=== PATIENT | female | born 1975 ===

== ENCOUNTER → 2023-08-17 | Emergency (ER) | payer BC, SELFPAY ==
[~2023-08-17] MED LIST: DIAZEPAM 5 MG TABLET ONE; FAMOTIDINE 20 MG/2 ML VIAL IV ONE; HYDROMORPHONE HCL 1 MG/ML INJ ONE; KETOROLAC 30 MG/ML INJ ONE; Levofloxacin 750mg IV 750 MG/150 ML BAG IV ONE; NA CHLORIDE 0.9% 1,000 ML ONE; ONDANSETRON 4 MG/2 ML VIAL ONE; dexAMETHasone 10 MG/ML VIAL ONE
[2023-08-17 17:50] LABS: Absolute Lymphocytes (CBC) 1.5 K/uL (0.7-4.9); Hematocrit 31.2 % (36.0-45.0); Lymphocytes % 27.8 % (15.3-44.8); MCV 86.1 fL (80-100); Platelets 252 thou/uL (152-406); RBC Red Blood Cell Count 3.63 M/uL (3.86-4.86)
[2023-08-17 18:05] LABS: Protime INR 1.02
[2023-08-17 18:15] LABS: Albumin 3.1 g/dL (3.4-5.0); Bilirubin Direct 0.1 mg/dL (0-0.2); Bilirubin Indirect, Calculated 0.3 mg/dL (0.2-0.8); Bilirubin Total 0.4 mg/dL (0.2-1.0); Magnesium 2.2 mg/dL (1.6-2.4); Potassium 3.7 mEq/L (3.5-5.1); Protein, Total 7.2 g/dL (6.4-8.2); Troponin High Sensitivity 7.5 pg/mL (<58.9)
[2023-08-17 18:20] LABS: SARS-CoV-2 Antigen Rapid Res Negative (Negative)
[2023-08-17 19:08] LABS: Specific Gravity 1.028 (1.005-1.030); Urine Bacteria None Seen /HPF (<20); Urine Bilirubin NEGATIVE (Negative); Urine Blood Negative (Negative); Urine Clarity Turbid (Clear); Urine Color Light-Yellow (Yellow); Urine Glucose NEGATIVE (Negative); Urine Mucus 2+ /HPF (None Seen); Urine Protein TRACE (Negative); Urine RBC None Seen /HPF (None Seen); Urine Urobilinogen Normal (Normal); Urine pH 5.5 (5.0-7.0)
--- NOTE | 2023-08-17 19:28 | RAD REPORT ---
EXAM DESCRIPTION: CT - Chest For Pe Angio - 08/17/2023 7:03 pm CLINICAL HISTORY: Chest pain COMPARISON: None. TECHNIQUE: Dynamically enhanced axial 3 mm thick images of the chest were obtained during administra tion of 100 mL Isovue 370 IV contrast. Coronal and oblique reconstruction images were generated and r eviewed. Exam utilizes a protocol for optimal evaluation of pulmonary arterial tree. Maximum intensity projections 3D imaging was utilized All CT scans are performed using dose optimization technique as appropriate and may include automated exposure control or mA/KV adjustment according to patient size. FINDINGS: A mildly suboptimal opacification pulmonary arteries. No gross pulmonary embolus seen A thoracic aortic aneurysm is not noted. A small left pleural effusion. No pericardial effusion. Minimal left lower lobe atelectasis IMPRESSION: No gross pulmonary embolus seen
--- NOTE | 2023-08-17 19:28 | RAD REPORT ---
EXAM DESCRIPTION: CT - Abdomen Pelvis W Contrast - 08/17/2023 7:03 pm CLINICAL HISTORY: Abdominal pain COMPARISON: none. TECHNIQUE: Computed axial tomography of the abdomen pelvis was obtained. 100 cc Isovue-300 was admin istered intravenously. Oral contrast was not requested which limits evaluation of bowel and appendix All CT scans are performed using dose optimization technique as appropriate and may include automated exposure control or mA/KV adjustment according to patient size. FINDINGS: Prominence of the left and caudate lobes of the liver may indicate early chronic disease. The spleen measures 14 centimeters Pancreas, adrenals and kidneys are unremarkable Small to moderate umbilical hernia No adnexal mass. Normal appendix No evidence of diverticulitis IMPRESSION: Mild splenomegaly
--- NOTE | 2023-08-17 19:29 | RAD REPORT ---
EXAM DESCRIPTION: Ahsan Single View08/17/2023 6:13 pm CLINICAL HISTORY: cough COMPARISON: none FINDINGS: The lungs appear clear of acute infiltrate. The heart is mildly enlarged . Small left pleural effusion
--- NOTE | 2023-08-17 19:54 | ER ---
Nurse's Notes [facility] Name: Maria Teresa Arredondo Age: 48 yrs Sex: Female : 1975 Arrival Date: 08/17/2023 Time: 16:40 Bed 6 Private MD: Diagnosis: Strain of muscle and tendon of back wall of thorax;Strain of muscle and tendon of front wall of thorax;Cough;Fever, unspecified;Pneumonia due to other specified bacteria;Pleurisy;Pleural effusion, not elsewhere classified Presentation: 08/17 17:06 Chief complaint: Patient states: Pt states she has had a cold since 07/17/23. Pt c/o tl4 left side pain, "swollen all over", and "can't hardly breathe". Pt diagnosed with "a pulled muscle". Pt states pain is getting worse. Coronavirus screen: Vaccine status: Patient reports being unvaccinated. Ebola Screen: Patient negative for fever greater than or equal to 101.5 degrees Fahrenheit, and additional compatible Ebola Virus Disease symptoms Patient denies exposure to infectious person. Patient denies travel to an Ebola-affected area in the 21 days before illness onset. No symptoms or risks identified at this time. Initial Sepsis Screen: Does the patient meet any 2 criteria? No. Patient's initial sepsis screen is negative. Does the patient have a suspected source of infection? No. Patient's initial sepsis screen is negative. Risk Assessment: Do you want to hurt yourself or someone else? Patient reports no desire to harm self or others. Onset of symptoms was July 17, 2023. 17:06 Method Of Arrival: Ambulatory tl4 17:06 Acuity: YESSI 3 tl4 Triage Assessment: 17:11 General: Appears in no apparent distress. Behavior is calm, cooperative. Pain: tl4 Complains of pain in "everywhere". EENT: No deficits noted. No signs and/or symptoms were reported regarding the EENT system. Neuro: No deficits noted. Cardiovascular: No deficits noted. Denies chest pain, diaphoresis, lightheadedness, palpitations. Respiratory: Reports cough that is. GI: No deficits noted. No signs and/or symptoms were reported involving the gastrointestinal system. : No deficits noted. No signs and/or symptoms were reported regarding the genitourinary system. Derm: No deficits noted. No signs and/or symptoms reported regarding the dermatologic system. [employer]IDE [employer]OWER: 18:52 unknown tl4 Historical: - Allergies: 17:10 No Known Allergies; tl4 - Home Meds: 17:10 None [Active]; tl4 - PMHx: 17:10 None; tl4 - PSHx: 17:10 None; tl4 - Immunization history:: Adult Immunizations unknown. - Social history:: Smoking status: Patient/guardian denies using tobacco, the patient reports quitting approximately 5 years ago. - Family history:: not pertinent. Screenin:[facility] ED Fall Risk Assessment (Adult) History of falling in the last 3 months, tl4 including since admission No falls in past 3 months (0 pts) Confusion or Disorientation No (0 pts) Intoxicated or Sedated No (0 pts) Impaired Gait No (0 pts) Mobility Assist Device Used No (0 pt) Altered Elimination No (0 pt) Score/Fall Risk Level 0 - 2 = Low Risk Oriented to surroundings, Maintained a safe environment, Educated pt \\T\\ family on fall prevention, incl call for assistance when getting out of bed, Assessed \\T\\ reinforced patient's understanding of fall precautions, Provided non-skid footwear, Hourly rounding (assess needs \\T\\ fall precautionary measures) done, Used ambulatory aids as needed (educated on \\T\\ assisted with), Used gait belt as appropriate. Abuse screen: Denies threats or abuse. Denies injuries from another. Nutritional screening: No deficits noted. Tuberculosis screening: No symptoms or risk factors identified. Assessment: 18:47 Reassessment: Patient and/or family updated on plan of care and expected duration. Pain tl4 level reassessed. Patient is alert, oriented x 3, equal unlabored respirations, skin warm/dry/pink. Patient states feeling better. 19:46 Reassessment: Patient appears in no apparent distress at this time. No changes from jw7 previously documented assessment. Patient and/or family updated on plan of care and expected duration. Pain level reassessed. Patient is alert, oriented x 3, equal unlabored respirations, skin warm/dry/pink. 20:26 Reassessment: Patient appears in no apparent distress at this time. Patient and/or jw7 family updated on plan of care and expected duration. Pain level reassessed. Patient is alert, oriented x 3, equal unlabored respirations, skin warm/dry/pink. Patient states feeling better. Patient states symptoms have improved. Vital Signs: 17:06 BP 157 / 108; Pulse 78; Resp 16; Temp 98.3; Pulse Ox 100% on R/A; Pain 10/10; tl4 17:46 BP 126 / 71; Pulse 64; Resp 17; Pulse Ox 98% on R/A; tl4 18:48 BP 136 / 92; Pulse 62; Resp 18; Pulse Ox 98% on R/A; Pain 5/10; tl4 19:30 BP 113 / 55; Pulse 59; Resp 19 S; Pulse Ox 97% on R/A; jw7 20:25 BP 119 / 66; Pulse 59; Resp 15 S; Pulse Ox 95% on R/A; jw7 17:06 Pain Scale: Adult tl4 18:48 Pain Scale: Adult tl4 ED Course: 16:55 Patient arrived in ED. cm10 16:56 Phoenix Do MD is Attending Physician. tiny 16:56 Crys Aleman, RN is Primary Nurse. ko1 17:10 Triage completed. tl4 17:12 Arm band placed on Patient placed in an exam room, on a stretcher. tl4 17:57 Basic Metabolic Panel Sent. tl4 17:57 CBC with Diff Sent. tl4 17:57 LFT's Sent. tl4 17:57 Magnesium Sent. tl4 17:57 NT PRO-BNP Sent. tl4 17:57 PT-INR Sent. tl4 17:57 Troponin HS Sent. tl4 17:57 Flu Sent. tl4 17:57 SARS RAPID Sent. tl4 17:58 Blood Culture Adult (2) Sent. tl4 18:15 XRAY Chest (1 view) In Process Unspecified. EDMS 18:22 INCENTIVE SPIROMETRY Sent. tl4 18:32 Phoenix Broussard PA is PHCP. cp 18:52 Patient has correct armband on for positive identification. Placed in gown. Bed in low tl4 position. Call light in reach. Side rails up X2. Adult w/ patient. Provided Education on: ed process. 18:52 No provider procedures requiring assistance completed. Inserted saline lock: 20 gauge tl4 in right forearm, using aseptic technique. Blood collected. 19:05 CT Chest For PE Angio In Process Unspecified. EDMS 19:05 CT Abd/Pelvis - IV Contrast Only In Process Unspecified. EDMS 20:27 IV discontinued, intact, bleeding controlled, No redness/swelling at site. Pressure jw7 dressing applied. Administered Medications: 17:55 Drug: Famotidine IVP 20 mg IVP once; dilute with 10 mL 0.9% NaCl; give over 2 minutes tl4 Route: IVP; Site: right antecubital; 18:22 Follow up: Response: No adverse reaction tl4 17:56 Drug: HYDROmorphone IVP 1 mg IVP once Route: IVP; Infused Over: 2 mins; Site: right tl4 antecubital; 18:23 Follow up: Response: Pain is decreased tl4 17:56 Drug: Ondansetron IVP 8 mg IVP once; over 2 minutes Route: IVP; Infused Over: 4 mins; tl4 Site: right antecubital; 18:22 Follow up: Response: No adverse reaction tl4 17:56 Drug: levofloxacin IVPB 750 mg 150 ml IVPB once over 90 mins Volume: 150 ml; Route: tl4 IVPB; Infused Over: 90 mins; Site: right antecubital; Delivery: Primary tubing; 20:28 Follow up: Response: No adverse reaction; IV Status: Completed infusion; IV Intake: jw7 150ml 17:57 Drug: NS 0.9% IV 1000 ml IV at 1 bolus Per protocol; 1000 mL bolus Route: IV; Rate: 1 tl4 bolus; Site: right antecubital; 20:28 Follow up: Response: No adverse reaction; IV Status: Completed infusion; IV Intake: jw7 1000ml 17:57 Drug: Ketorolac IVP 30 mg IVP once Route: IVP; Site: right antecubital; tl4 18:23 Follow up: Response: No adverse reaction tl4 18:22 Drug: Decadron - Dexamethasone IVP 10 mg IVP once Route: IVP; Site: right antecubital; tl4 20:26 Follow up: Response: No adverse reaction jw7 18:22 Drug: Diazepam PO 10 mg PO once Route: PO; tl4 20:26 Follow up: Response: No adverse reaction; Marked relief of symptoms jw7 Medication: 18:51 VIS not applicable for this client. tl4 Intake: 20:28 IV: 150ml; Total: 150ml. jw7 20:28 IV: 1000ml; Total: 1150ml. jw7 Outcome: 19:54 Discharge ordered by . cp 20:26 Discharged to home ambulatory, jw7 20:26 Condition: stable 20:26 Discharge instructions given to patient, Instructed on discharge instructions, follow up and referral plans. medication usage, Demonstrated understanding of instructions, follow-up care, medications, Prescriptions given X 6 20:27 Patient left the ED. jw7 Signatures: Dispatcher [employer] EDMS Phoenix Do MD MD cha Page, Corey, PA PA Dinorah Carlton RN RN jw7 Crys Aleman, RN RN ko1 Jennifer Wolfe RN RN cm10 Gareth Dillard 4
--- NOTE | 2023-08-17 19:55 | EDPHYS ---
Physician Documentation [facility] Name: Maria Teresa Arredondo Age: 48 yrs Sex: Female : 1975 Arrival Date: 08/17/2023 Time: 16:40 Bed 6 Private MD: АНДРЕЙ Physician Phoenix Do HPI: 08/17 17:45 This 48 yrs old Female presents to ER via Ambulatory with complaints of left tiny chest wall, left abd pain. 17:45 The patient presents with abdominal pain in the left upper quadrant, in the left lower tiny quadrant, abdominal distention in the upper abdomen, in the lower abdomen. Onset: The symptoms/episode began/occurred 5 day(s) ago. The patient or guardian reports chest pain that is located primarily in the anterior chest wall, left lateral posterior chest and left lateral anterior chest. Onset: The symptoms/episode began/occurred 5 day(s) ago. The pain does not radiate. Associated signs and symptoms: Pertinent positives: cough, shortness of breath. The chest pain is described as aching. Modifying factors: The symptoms are alleviated by remaining still, the symptoms are aggravated by cough, deep breath, movement, palpation of area. Severity of pain: At its worst the pain was moderate in the emergency department the pain is unchanged. Associated signs and symptoms: Pertinent positives: chest pain, fever. 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 - Social history:: Smoking status: Patient/guardian denies using tobacco, the patient reports quitting approximately 5 years ago. - Family history:: not pertinent. ROS: 17:45 Constitutional: Negative for fever, chills, and weight loss, Eyes: Negative for injury, tiny pain, redness, and discharge, ENT: Negative for injury, pain, and discharge, Neck: Negative for injury, pain, and swelling, Cardiovascular: Negative for chest pain, palpitations, and edema, Back: Negative for injury and pain, : Negative for injury, bleeding, discharge, and swelling, MS/Extremity: Negative for injury and deformity, Skin: Negative for injury, rash, and discoloration, Neuro: Negative for headache, weakness, numbness, tingling, and seizure, Psych: Negative for depression, anxiety, suicide ideation, homicidal ideation, and hallucinations, Allergy/Immunology: Negative for hives, rash, and allergies, Endocrine: Negative for neck swelling, polydipsia, polyuria, polyphagia, and marked weight changes, Hematologic/Lymphatic: Negative for swollen nodes, abnormal bleeding, and unusual bruising, 17:45 Respiratory: Positive for cough, shortness of breath, at rest. 17:45 Abdomen/GI: Positive for abdominal pain, nausea and vomiting, abdominal distension, of the posterior aspect of left lateral abdomen and anterior aspect of left lateral abdomen, Exam: 17:45 Constitutional: This is a well developed, well nourished patient who is awake, alert, tiny and in no acute distress. Head/Face: Normocephalic, atraumatic. Eyes: Pupils equal round and reactive to light, extra-ocular motions intact. Lids and lashes normal. Conjunctiva and sclera are non-icteric and not injected. Cornea within normal limits. Periorbital areas with no swelling, redness, or edema. ENT: Nares patent. No nasal discharge, no septal abnormalities noted. Tympanic membranes are normal and external auditory canals are clear. Oropharynx with no redness, swelling, or masses, exudates, or evidence of obstruction, uvula midline. Mucous membranes moist. Neck: Trachea midline, no thyromegaly or masses palpated, and no cervical lymphadenopathy. Supple, full range of motion without nuchal rigidity, or vertebral point tenderness. No Meningismus. Cardiovascular: Regular rate and rhythm with a normal S1 and S2. No gallops, murmurs, or rubs. Normal PMI, no JVD. No pulse deficits. Respiratory: Lungs have equal breath sounds bilaterally, clear to auscultation and percussion. No rales, rhonchi or wheezes noted. No increased work of breathing, no retractions or nasal flaring. Back: No spinal tenderness. No costovertebral tenderness. Full range of motion. Skin: Warm, dry with normal turgor. Normal color with no rashes, no lesions, and no evidence of cellulitis. MS/ Extremity: Pulses equal, no cyanosis. Neurovascular intact. Full, normal range of motion. Neuro: Awake and alert, GCS 15, oriented to person, place, time, and situation. Cranial nerves II-XII grossly intact. Motor strength 5/5 in all extremities. Sensory grossly intact. Cerebellar exam normal. Normal gait. Psych: Awake, alert, with orientation to person, place and time. Behavior, mood, and affect are within normal limits. 17:45 Chest/axilla: Inspection: normal, Palpation: tenderness, that is moderate, of the left lateral posterior chest and left lateral anterior chest, Axilla: are normal, no acute changes, Lymph nodes: lymphadenopathy is not appreciated, 17:45 Skin: abscess, not appreciated, cellulitis, is not appreciated, induration, is not appreciated, injury, is not appreciated, no rash present. Turgor: is excellent, 18:18 ECG was reviewed by the Attending Physician. [facility] Vital Signs: 17:06 BP 157 / 108; Pulse 78; Resp 16; Temp 98.3; Pulse Ox 100% on R/A; Pain 10/10; tl4 17:46 BP 126 / 71; Pulse 64; Resp 17; Pulse Ox 98% on R/A; tl4 18:48 BP 136 / 92; Pulse 62; Resp 18; Pulse Ox 98% on R/A; Pain 5/10; tl4 19:30 BP 113 / 55; Pulse 59; Resp 19 S; Pulse Ox 97% on R/A; jw7 20:25 BP 119 / 66; Pulse 59; Resp 15 S; Pulse Ox 95% on R/A; jw7 17:06 Pain Scale: Adult tl4 18:48 Pain Scale: Adult tl4 MDM: 16:56 Patient medically screened. [facility] 17:48 Differential diagnosis: bowel obstruction, Cholelithiasis, diverticulitis, tiny Dysmenorrhea, gastritis, myocardia ischemia or infarction, non-specific abd pain, pancreatitis, Peptic Ulcer Disease, Pyelonephritis, Ureterolithiasis, urinary tract infection, Blunt Chest Trauma Chest Wall Contusion Chest Wall Injury Pleural Effusion Pulmonary Contusion. Data reviewed: vital signs, nurses notes, lab test result(s), EKG, radiologic studies, CT scan, plain films. Consideration of Admission/Observation Escalation of care including admission/observation considered. I considered the following discharge prescriptions or medication management in the emergency department Medications were administered in the Emergency Department. See MAR. Independent interpretation of the following test(s) in the Emergency Department EKG: See my EKG interpretation above. Test considered but Not performed: Ultrasound no abd usg. Care significantly affected by the following chronic conditions: Obesity. 08/17 17:09 Order name: Basic Metabolic Panel; Complete Time: 18:19 [facility] 08/17 19:50 Interpretation: Normal except: CL 108; GLUC 107; GFR 71; CA 8.2. 08/17 17:09 Order name: CBC with Diff; Complete Time: 18:14 [facility] 08/17 19:51 Interpretation: Normal except: RBC 3.63; HGB 11.2; HCT 31.2; EOSINOPHIL % 8.4. 08/17 17:09 Order name: LFT's; Complete Time: 18:19 [facility] 08/17 19:51 Interpretation: Normal except: ALB 3.1; GLOB 4.1; A/G 0.8. 08/17 17:09 Order name: Magnesium; Complete Time: 18:19 [facility] 08/17 19:52 Interpretation: Reviewed. 08/17 17:09 Order name: NT PRO-BNP; Complete Time: 18:19 [facility] 08/17 19:51 Interpretation: Abnormal: NT PRO-BNP 217. 08/17 17:09 Order name: PT-INR; Complete Time: 18:14 [facility] 08/17 17:09 Order name: Troponin HS; Complete Time: 18:19 [facility] 08/17 19:53 Interpretation: Reviewed. 08/17 17:09 Order name: Blood Culture Adult (2) [facility] 08/17 17:09 Order name: SARS RAPID; Complete Time: 18:26 08/17 17:09 Order name: Flu; Complete Time: 18:26 [facility] 08/17 17:09 Order name: Lactate w/ 2H reflex if indic.; Complete Time: 18:14 [facility] 08/17 17:09 Order name: Urinalysis w/ reflexes; Complete Time: 19:49 [facility] 08/17 19:49 Interpretation: Normal except: [facility] Turbid; UPROT TRACE. 08/17 17:09 Order name: XRAY Chest (1 view); Complete Time: 19:49 [facility] 08/17 19:49 Interpretation: Report review. 08/17 17:09 Order name: CT Chest For PE Angio; Complete Time: 19:49 [facility] 08/17 19:50 Interpretation: Report reviewed. 08/17 17:09 Order name: CT Abd/Pelvis - IV Contrast Only; Complete Time: 19:49 [facility] 08/17 19:52 Interpretation: Report reviewed. 08/17 18:05 Order name: INCENTIVE SPIROMETRY [facility] 08/17 17:09 Order name: EKG; Complete Time: 17:10 [facility] 08/17 17:09 Order name: Cardiac monitoring; Complete Time: 17:17 [facility] 08/17 17:09 Order name: EKG - Nurse/Tech; Complete Time: 18:19 [facility] 08/17 17:09 Order name: IV Saline Lock; Complete Time: 17:57 [facility] 08/17 17:09 Order name: Labs collected and sent; Complete Time: 17:57 [facility] 08/17 17:09 Order name: O2 Per Protocol; Complete Time: 17:17 [facility] 08/17 17:09 Order name: O2 Sat Monitoring; Complete Time: 17:17 tiny EC:18 Rate is 61 beats/min. Rhythm is regular. QRS [place] is Normal. [place] interval is normal. QRS tiny interval is normal. QT interval is normal. No Q waves. T waves are Normal. No ST changes noted. Clinical impression: NSR w/ Non-specific ST/T Changes, 1st degree heart block, and No evidence of ischemia. Interpreted by me. Reviewed by me. Administered Medications: 17:55 Drug: Famotidine IVP 20 mg IVP once; dilute with 10 mL 0.9% NaCl; give over 2 minutes tl4 Route: IVP; Site: right antecubital; 18:22 Follow up: Response: No adverse reaction tl4 17:56 Drug: HYDROmorphone IVP 1 mg IVP once Route: IVP; Infused Over: 2 mins; Site: right tl4 antecubital; 18:23 Follow up: Response: Pain is decreased tl4 17:56 Drug: Ondansetron IVP 8 mg IVP once; over 2 minutes Route: IVP; Infused Over: 4 mins; tl4 Site: right antecubital; 18:22 Follow up: Response: No adverse reaction tl4 17:56 Drug: levofloxacin IVPB 750 mg 150 ml IVPB once over 90 mins Volume: 150 ml; Route: tl4 IVPB; Infused Over: 90 mins; Site: right antecubital; Delivery: Primary tubing; 20:28 Follow up: Response: No adverse reaction; IV Status: Completed infusion; IV Intake: jw7 150ml 17:57 Drug: NS 0.9% IV 1000 ml IV at 1 bolus Per protocol; 1000 mL bolus Route: IV; Rate: 1 tl4 bolus; Site: right antecubital; 20:28 Follow up: Response: No adverse reaction; IV Status: Completed infusion; IV Intake: jw7 1000ml 17:57 Drug: Ketorolac IVP 30 mg IVP once Route: IVP; Site: right antecubital; tl4 18:23 Follow up: Response: No adverse reaction tl4 18:22 Drug: Decadron - Dexamethasone IVP 10 mg IVP once Route: IVP; Site: right antecubital; tl4 20:26 Follow up: Response: No adverse reaction jw7 18:22 Drug: Diazepam PO 10 mg PO once Route: PO; tl4 20:26 Follow up: Response: No adverse reaction; Marked relief of symptoms jw7 Disposition Summary: 08/17/23 19:54 Discharge Ordered Notes: Location: Home cp Problem: new cp Symptoms: have improved cp Condition: Stable cp Diagnosis - Strain of muscle and tendon of back wall of thorax cp - Strain of muscle and tendon of front wall of thorax cp - Cough cp - Fever, unspecified cp - Pneumonia due to other specified bacteria cp - Pleurisy cp - Pleural effusion, not elsewhere classified cp Followup: tiny - With: Private Physician - When: 2 - 3 days - Reason: Recheck today's complaints, Continuance of care, Re-evaluation by your physician Discharge Instructions: - Discharge Summary Sheet tiny - Fever, Adult tiny - Muscle Strain tiny - Musculoskeletal Pain tiny - Muscle Pain, Adult tiny - Obesity, Adult tiny - Pleural Effusion tiny - Community-Acquired Pneumonia, Adult tiny - Cool Mist Vaporizer tiny - How to Use an Incentive Spirometer tiny - Cough, Adult, [id number] tiny - Muscle Strain, [id number] tiny - Cough, Adult tiny - Fever, Adult, [id number] tiny - Obesity, Adult, [id number] tiny Forms: - Medication Reconciliation Form cp - Thank You Letter cp - Antibiotic Education cp - Prescription Opioid Use cp - Patient Portal Instructions cp - Leadership Thank You Letter cp Prescriptions: - acetaminophen-codeine 300-30 mg Oral tablet - take 2 tablet ORAL route every 6 hours as needed for pain; 20 tablet; Refills: tiny 0, Product Selection Permitted - albuterol sulfate 90 mcg/actuation Inhalation HFA Aerosol Inhaler - inhale 2 puff INHALATION route every 4-6 hours as needed for bronchospasm; tiny administer via ventilator; 1 unit; Refills: 0, Product Selection Permitted - dexamethasone 2 mg Oral tablet - take 1 tablet ORAL route 2 times per day; 10 tablet; Refills: 0, Product tiny Selection Permitted - Valium 5 mg Oral Tablet - take 1 tablet ORAL route every 8 hours As needed; 20 tablet; Refills: 0, tiny Product Selection Permitted - Diclofenac Sodium 75 mg Oral tablet, delayed release (enteric coated) - take 1 tablet ORAL route 2 times per day; 20 tablet; Refills: 0, Product tiny Selection Permitted - levofloxacin 750 mg Oral tablet - take 1 tablet ORAL route once daily; 9 tablet; Refills: 0, Product Selection tiny Permitted Signatures: Dispatcher [employer] Phoenix Gongora MD MD cha Page, Corey, PA PA cp Logdahl, Toni 4 Dinorah Story RN jw7
[2023-08-17 22:01] VITALS: TEMP 98.3
[2023-08-17 22:16] VITALS: BP 119/66; O2SAT 95
--- NOTE | 2023-08-24 13:56 | EKG ---
Test Date: 2023-08-17 Test Time: 18:12:47 Web Operations Manager: TL MEASUREMENT RESULTS: Intervals: Rate: 61 MN: 244 QRSD: 92 QT: 434 QTc: 436 [place]: P: 55 MN: 244 QRS: 68 T: 66 INTERPRETIVE STATEMENTS: Sinus rhythm with 1st degree AV block Otherwise normal ECG No previous ECG available for comparison Electronically Signed On 08-24-23 13:31:11 DENTAL DIRECTOR by Dre Butler
== END ==
LOC: ER 16:40
DX: J18.9 Pneumonia, unspecified organism (principal); S29.012A Strain of muscle and tendon of back wall of thorax, initial encounter; S29.011A Strain of muscle and tendon of front wall of thorax, initial encounter; R50.9 Fever, unspecified; R05.9 Cough, unspecified; R09.1 Pleurisy; Z87.891 Personal history of nicotine dependence; Z11.52 Encounter for screening for COVID-19
CPT/HCPCS: 36415; 71045; 71275; 74177; 80048; 80076; 81001; 83605; 83735; 83880; 84484; 85025; 85610; 87040; 87804; 87811; 93005; 96365; 96366; 96375; 99284; J1100; J1170; J2405; J7030; Q9967